=== PATIENT | female | born 1995 | race African-American/Black ===

== ENCOUNTER 2017-10-14 03:02 | Emergency (ER) | payer SELFPAY ==
[2017-10-14 03:57] VITALS: BP 137/76; PULSE 95; RESP 16; TEMP 98.4; O2SAT 100
--- NOTE | 2017-10-14 05:03 | PD ---
HPI Chief Complaint: Chest Pain Time Seen by Provider: 05:00 Travel History International Travel<30 days: No Contact w/Intl Traveler<30days: No Traveled to known affect area: No History of Present Illness HPI This is a 21-year-old female who presents for evaluation of chest pain. Symptoms started 2 weeks ago. She describes it as an intermittent sharp pain on the left side of her chest which is worse when she is smoking tobacco or marijuana products or when she is breathing in deep. The pain was worse tonight and this is what prompted evaluation. Currently she is asymptomatic however. When the pain comes on she does occasionally have a tightness in her epigastric region as well. She denies cough, congestion, shortness of breath, nausea or vomiting, dysuria, flank pain, fevers or chills, lower extremity edema. She is not on any control. She does report that she traveled to [place] this weekend by car. She has no significant past medical history. No other complaints at this time. [facility] Past Medical History Medical History: Denies Significant Hx ?: Not LMP: 09/25/17 Past Surgical History Surgical History: No Previous Surgery Social History Alcohol Use: No Tobacco Use: Yes Substance Use: Yes Allergies-Medications (Allergen,Severity, Reaction): Coded Allergies: No Known Allergies (Unverified , 10/14/17) Reported Meds & Prescriptions Reported Meds & Active Scripts Active No Active Prescriptions or Reported Medications Review of Systems Except as stated in HPI: all other systems reviewed are Neg Physical Exam Narrative GENERAL: Well-developed well-nourished female no acute distress SKIN: Warm and dry. HEAD: Atraumatic. Normocephalic. EYES: Pupils equal and round. No scleral icterus. No injection or drainage. ENT: No nasal bleeding or discharge. Mucous membranes pink and moist. NECK: Trachea midline. No JVD. CARDIOVASCULAR: Regular rate and rhythm. No murmur appreciated. RESPIRATORY: No accessory muscle use. Clear to auscultation. Breath sounds equal bilaterally. GASTROINTESTINAL: Abdomen soft, non-tender, nondistended. Hepatic and splenic margins not palpable. MUSCULOSKELETAL: No obvious deformities. No clubbing. No cyanosis. No edema. NEUROLOGICAL: Awake and alert. No obvious cranial nerve deficits. Motor grossly within normal limits. Normal speech. PSYCHIATRIC: Appropriate mood and affect; insight and judgment normal. Data Data Last Documented VS Vital Signs Date Time Temp Pulse Resp B/P (MAP) Pulse Ox O2 Delivery O2 Flow Rate FiO2 10/14/17 06:19 67 18 123/70 (87) 100 10/14/17 03:57 98.4 Orders Orders Electrocardiogram (10/14/17 04:06) Ckmb (Isoenzyme) Profile (10/14/17 05:00) Complete Blood Count With Diff (10/14/17 05:00) Comprehensive Metabolic Panel (10/14/17 05:00) D-Dimer (10/14/17 05:00) Troponin I (10/14/17 05:00) Lipase (10/14/17 05:00) Chest, Single Ap (10/14/17 05:00) Ed Urine Pregnancytest Poc (10/14/17 05:00) CKMB (10/14/17 05:20) CKMB% (10/14/17 05:20) Ketorolac Inj (Toradol Inj) (10/14/17 06:15) Ed Discharge Order (10/14/17 06:40) Labs Laboratory Tests Test 10/14/17 05:20 White Blood Count 8.4 TH/MM3 Red Blood Count 4.54 MIL/MM3 Hemoglobin 13.0 GM/DL Hematocrit 39.0 % Mean Corpuscular Volume 85.8 FL Mean Corpuscular Hemoglobin 28.6 PG Mean Corpuscular Hemoglobin Concent 33.3 % Red Cell Distribution Width 14.2 % Platelet Count 341 TH/MM3 Mean Platelet Volume 7.8 FL Neutrophils (%) (Auto) 62.1 % Lymphocytes (%) (Auto) 24.1 % Monocytes (%) (Auto) 8.8 % Eosinophils (%) (Auto) 4.2 % Basophils (%) (Auto) 0.8 % Neutrophils # (Auto) 5.2 TH/MM3 Lymphocytes # (Auto) 2.0 TH/MM3 Monocytes # (Auto) 0.7 TH/MM3 Eosinophils # (Auto) 0.4 TH/MM3 Basophils # (Auto) 0.1 TH/MM3 CBC Comment DIFF FINAL Differential Comment D-Dimer Quantitative (PE/DVT) LESS THAN 0.19 MG/L FEU Blood Urea Nitrogen 13 MG/DL Creatinine 0.88 MG/DL Random Glucose 94 MG/DL Total Protein 7.8 GM/DL Albumin 4.1 GM/DL Calcium Level 9.1 MG/DL Alkaline Phosphatase 78 U/L Aspartate Amino Transf (AST/SGOT) 18 U/L Alanine Aminotransferase (ALT/SGPT) 16 U/L Total Bilirubin 0.2 MG/DL Sodium Level 138 MEQ/L Potassium Level 3.8 MEQ/L Chloride Level 105 MEQ/L Carbon Dioxide Level 24.7 MEQ/L Anion Gap 8 MEQ/L Estimat Glomerular Filtration Rate 98 ML/MIN Total Creatine Kinase 104 U/L Creatine Kinase MB 0.5 NG/ML Troponin I LESS THAN 0.02 NG/ML Lipase 140 U/L MDM Medical Decision Making Medical Screen Exam Complete: Yes Emergency Medical Condition: Yes Medical Record Reviewed: Yes Differential Diagnosis Pleurisy, costochondritis, pericarditis, myocarditis, pulmonary embolism, acute coronary syndrome, spontaneous pneumothorax, pancreatitis Narrative Course The patient was placed on ECG monitoring pulse oximetry, 12-lead EKG was obtained revealing sinus rhythm. For the past week she has been having intermittent left-sided pleuritic chest pain as well as a tightness in her epigastrium. Plan is for basic lab work, d-dimer, chest x-ray. Lab work has been reviewed and found to be unremarkable. Urine test is negative. Patient's pain is consistent with pleurisy. Recommended over-the- counter NSAIDs for symptom relief. She was given a dose of Toradol here. She is stable for discharge. Diagnosis Primary Impression: Pleurisy Additional Instructions: Take [id number] ibuprofen as needed for pain per dosing instructions on the bottle. Consider ceasing marijuana and tobacco use. Follow-up with primary care physician as needed and return for any emergent medical conditions. Med/Other Pt SpecificInfo: No Change to Meds Scripts No Active Prescriptions or Reported Meds Disposition: 01 DISCHARGE HOME Condition: Stable Adelfo Gomez Oct 14, 2017 05:03
[2017-10-14 05:59] LABS: ALBUMIN 4.1 GM/DL (3.4-5.0); ALT (GPT) 16 U/L (10-53); AST (GOT) 18 U/L (15-37); BICARBONATE 24.7 MEQ/L (21.0-32.0); BLOOD UREA NITROGEN 13 MG/DL (7-18); CALCIUM 9.1 MG/DL (8.5-10.1); CHLORIDE 105 MEQ/L (98-107); CREATININE 0.88 MG/DL (0.50-1.00); GLOMERULAR FILTRATION RATE 98 ML/MIN (>89); GLUCOSE,RANDOM 94 MG/DL (74-106); SODIUM (NA) 138 MEQ/L (136-145)
[2017-10-14 06:03] LABS: ALKALINE PHOSPHATASE 78 U/L (45-117); TOTAL BILIRUBIN ADULT 0.2 MG/DL (0.2-1.0); TOTAL PROTEIN 7.8 GM/DL (6.4-8.2); TROPONIN I LESS THAN 0.02 NG/ML (0.02-0.05)
[2017-10-14 06:06] LABS: AUTOMATED NEUTROPHIL # 5.2 TH/MM3 (1.8-7.7); BASOPHIL # 0.1 TH/MM3 (0-0.2); BASOPHIL % 0.8 % (0.0-2.0); EOSINOPHIL # 0.4 TH/MM3 (0-0.4); EOSINOPHIL % 4.2 % (0.0-4.0); LYMPH % 24.1 % (9.0-44.0); MEAN CELL VOLUME 85.8 FL (80.0-100.0); MEAN CORPUSCULAR HEMOGLOBIN 28.6 PG (27.0-34.0); MEAN CORPUSCULAR HGB CONC 33.3 % (32.0-36.0); MEAN PLATELET VOLUME 7.8 FL (7.0-11.0); MONO % 8.8 % (0.0-8.0); MONOCYTE # 0.7 TH/MM3 (0-0.9); NEUT % 62.1 % (16.0-70.0); PLATELET COUNT 341 TH/MM3 (150-450); RED BLOOD COUNT 4.54 MIL/MM3 (4.00-5.30); RED CELL DISTRIBUTION WIDTH 14.2 % (11.6-17.2); WHITE BLOOD COUNT 8.4 TH/MM3 (4.0-11.0)
[2017-10-14] MEDS ORDERED: KETOROLAC TROMETHAMINE 30 MG/ML (IVP) VIAL IV PUSH ONE (06:15)
[2017-10-14 06:19] VITALS: BP 123/70; PULSE 67; RESP 18; O2SAT 100
--- NOTE | 2017-10-14 06:33 | RADRPT ---
EXAM DATE/TIME: 10/14/2017 05:24 [facility] COMPARISON: No previous studies available for comparison. INDICATIONS : Chest pain. MEDICAL HISTORY : None. SURGICAL HISTORY : None. ENCOUNTER: Initial ACUITY: 1 day PAIN SCORE: 3/10 LOCATION: Bilateral chest FINDINGS: A single view of the chest demonstrates the lungs to be symmetrically aerated without evidence of mas s, infiltrate or effusion. The cardiomediastinal contours are unremarkable. Osseous structures are intact. CONCLUSION: The lungs are clear. Darren Elmore MD on October 14, 2017 at 6:32 Board Certified Radiologist. This report was verified electronically.
--- NOTE | 2017-10-14 08:44 | EKG ---
Date Performed: 10/14/2017 Time Performed: 04:16:56 PTAGE: 21 years EKG: Sinus rhythm NORMAL ECG NO PREVIOUS TRACING DOCTOR: Anuel Fowler Interpretating Date/Time 10/14/2017 08:24:53
== END 2017-10-14 06:56 | disposition home or self-care (01) ==
LOC: NEPD 03:02
DX: R09.1 Pleurisy (principal); Z72.0 Tobacco use
CPT/HCPCS: 71045; 80053; 82550; 82552; 83690; 84484; 84703; 85025; 85379; 93005; 96374; 99285; J1885